=== PATIENT | female | born 1955 | race African-American/Black ===

== ENCOUNTER → 2018-11-26 | Outpatient (CLI) | payer MEDICARE ==
--- NOTE | 2018-11-26 11:23 | PCVCIMAG ---
APPROVED REPORT Indications Stenosis Doppler Spectral Velocity Analysis PSV / EDVPSV / EDV ECA (R) 61 / 11 cm/sECA (L) 208 / 18 cm/s dICA (R) 80 / 28 cm/sdICA (L) 80 / 26 cm/s Paulo (R) 79 / 25 cm/smICA (L) 97 / 25 cm/s pICA (R) 85 / 24 cm/spICA (L) 119 / 28 cm/s Bulb (R) 81 / 19 cm/sBulb (L) 124 / 20 cm/s dCCA (R) 82 / 20 cm/sdCCA (L) 101 / 17 cm/s mCCA (R) 101 / 19 cm/smCCA (L) 83 / 19 cm/s Vert (R) 110 / 19 cm/sVert (L) 72 / 0 cm/s ICA/CCA 1.04ICA/CCA 1.18 Findings The right carotid bulb has moderate calcified plaque. The right proximal internal carotid artery shows <40% stenosis. The right common carotid artery shows no significant stenosis. The right external carotid artery shows no significant stenosis. The left carotid bulb has moderate calcified plaque. The left proximal internal carotid artery shows 40-50% stenosis. The left common carotid artery shows no significant stenosis. The left external carotid artery shows no significant stenosis. Conclusion 1. Right internal carotid artery stenosis (<40%) 2. Left internal carotid artery stenosis (40-50%) 3. Antegrade right vertebral flow, retrograde left vertebral flow
--- NOTE | 2018-11-26 13:01 | PCVCIMAG ---
APPROVED REPORT Study performed: 11/26/2018 11:47:21 Exam: Stress Echocardiogram Indication: Hypertension, PVD, Smoking Patient Location: Echo lab Stress Nurse: Stormy Wiseman RN Status: routine Ht: 5 ft 5 in HR: 66 bpm BP: 110/80 mmHg Rhythm: NSR Medical History Medical History: Hyperlipidemia, PVD, smoking Procedure The patient underwent an Exercise Stress Test using the Pako Protocol. Blood pressure, heart rate, and EKG were monitored. An Echocardiogram was performed by refurbish technician in four stages in quad fashion. At peak stress, four selected images were obtained and placed side by side with resting images for comparison. Stress Test Details Stress Test: Exercise stress testing was performed using a Pako protocol. HR Resting HR: 66 bpmMax Heart Rate (APMHR): 157 bpm Max HR Achieved: 116 bpmTarget HR (85% APMHR): 133 bpm % of APMHR: 73 Recovery HR: 53 bpm HR response to stress: Normal HR response to stress BP Resting BP: 110/80 mmHg Max BP: 156/76 mmHg Recovery BP: 156/76 mmHg BP response to stress: Normal blood pressure response to stress. ECG Resting ECG: Sinus Rhythm, NSSTT changes Stress ECG: Sinus Rhythm, nonspecific ST-T abnormalities ST Change: Normal Maximum ST Deviation: 0 mm Arrhythmia: None Recovery ECG: Sinus Rhythm Recovery ST Change: Normal Recovery ST Deviation: 0 mm Clinical Reason for Termination: Leg pain/Claudication Stress Symptoms: Leg Fatigue Exercise duration: 2 min sec Highest Stage Achieved: Stage 1: 1.7 mph at 10% grade. Exercise capacity: 4.60 METs Angina Score: None Stress ECG Conclusion ECG: Non-ischemic Non-diagnostic exercise stress due to failure to attain target HR. Burton Treadmill Score is 2.0 which is Moderate risk. Pre-Stress Echo The resting Echocardiogram showed normal left ventricular contractility with an estimated Ejection Fraction of about 55-60%. Normal wall motion in all segments on baseline images. Post-Stress Echo The stress Echocardiogram showed normal left ventricular contractility with an estimated Ejection Fraction of about %. Normal augmentation of wall motion in all segments on post stress images. Clinical No clinical or ECG evidence for ischemia. Conclusion Clinical Response: Non-ischemic Exercise Capacity: Below Average Stress ECG Response: Indeterminant Stress Echo Images: Indeterminant The left ventricle is normal in size and wall thickness in both the rest and stress images. Submaximal stress, non-diagnostic stress test due to short excercise time and low heart rate achieved Suggest myocardial perfusion imaging, scheduled. <Conclusion> The left ventricle is normal in size and wall thickness in both the rest and stress images. Submaximal stress, non-diagnostic stress test due to short excercise time and low heart rate achieved Suggest myocardial perfusion imaging, scheduled.
--- NOTE | 2018-11-26 14:46 | PCVCIMAG ---
EXAM: ARTERIAL DUPLEX LEFT UPPER EXTREMITY INDICATION: Decreased pulses left arm. Left arm fatigue. Left subclavian steal. FINDINGS: Left arm: Severely blunted arterial waveforms throughout the subclavian, axillary, brachial, radial, and ulnar arteries worrisome for a nonvisualized occlusion or high-grade stenosis at the origin of the left subclavian artery. Note is made of reversed flow in the left vertebral artery which also supports this. IMPRESSION: Probable high-grade stenosis or occlusion origin left subclavian artery as reviewed above. We will contact Dr. Epps's office. Patient would likely benefit from conventional angiography with intervention is appropriate. LOC:[id number]
== END | disposition home or self-care (01) ==
LOC: PCVCIMAG 11:54
PROVIDERS: ATTEND Family Medicine
DX: I65.23 Occlusion and stenosis of bilateral carotid arteries (principal); I10 Essential (primary) hypertension; I73.9 Peripheral vascular disease, unspecified; R07.9 Chest pain, unspecified; F17.200 Nicotine dependence, unspecified, uncomplicated; R53.83 Other fatigue; R09.89 Other specified symptoms and signs involving the circulatory and respiratory systems
CPT/HCPCS: 93325; 93351; 93880; 93931

== ENCOUNTER → 2018-12-02 | Outpatient (CLI) | payer MEDICARE ==
[~2018-12-02] MED LIST: REGADENOSON 0.4 MG/5 ML DISP.SYRIN. IV ONE
--- NOTE | 2018-12-02 16:36 | PCVCIMAG ---
APPROVED REPORT Imaging Protocol: Rest Tc-99m/Stress Tc-99m 1 day Study performed: 12/02/2018 09:24:03 Indication: Chest pain, Left Arm Pain Patient Location: Out-Patient Stress Nurse: Elisabeth Bermudez RN, JUAN CARLOS Fagan Tech:Noman ZavalaMELODY Ht: 5 ft 5 in Wt: 112 lbs BSA: 1.55 m2 HR: 53 bpm BP: 95/53 mmHg BMI: 18.63 Rhythm: Sinus Bradycardia, Nonspecific T wave Abnormality Medical History Medical History: Age, Hyperlipidemia, PVD, Smoker Medications: ASA, Atorvastatin, Plavix, Pletal Allergies: No known drug allergies Pretest Chest Pain Characteristics: No chest pain Exercise History: Indeterminate Physical Disabilities: Legs Resting Data Rest SPECT myocardial perfusion imaging was performed in supine position 45 minutes following the intravenous injection of 11.2 mCi of Tc-99m Sestamibi. Time of rest injection: 0845 Date: 12/02/2018 Administration Route: IV Administration Site: Right Arm Pharmacologic Stress Pharmacologic stress test was performed by injecting Regadenoson 0.4 mg IV push over 10-15 seconds immediately followed by the intravenous injection of 34 mCi of Tc-99m Sestamibi. Time of stress injection: 1000 Date: 12/02/2018 Administration Route: IV Administration Site: Right Arm Gated Stress SPECT was performed 45 minutes after stress injection. The images were gated to evaluate regional wall motion and calculate left ventricular ejection fraction. Stress Test Details Stress Test: Pharmacologic stress testing performed using 0.4 mg of regadenoson per 5 mL given IV over 10 seconds. Reason for pharmacologic stress test: Claudication, prior submaximal stress echo. HRMax Heart Rate (APMHR): 157 bpm Resting HR: 53 bpmTarget HR (85% APMHR): 133 bpm Max HR Achieved: 118 bpm % of APMHR: 75 Recovery HR: 85 bpm BP Resting BP: 95/53 mmHg Max BP: 82/64 mmHg Recovery BP: 86/54 mmHg ECG Resting ECG: Sinus Bradycardia, Nonspecific T wave Abnormality Stress ECG: Sinus Tachycardia, Nonspecific T wave Abnormality ST Change: borderline Arrhythmia: None Recovery ECG: Sinus Rhythm, Nonspecific T wave Abnormality Clinical Reason for Termination: Completed protocol Stress Symptoms: Chest Tightness, Lightheaded, Dyspnea Symptoms resolved with caffeine. Study Quality Study: Good Study Data Post stress, the left ventricular ejection was 73%.. SSS: 0 SRS: 0 SDS: 0 TID = 0.97. Perfusion Normal left ventricular perfusion. Normal perfusion on both the stress and rest images. Wall Motion Normal left ventricular wall motion. Nuclear Conclusion ECG Findings: equivocal Clinical Findings: non-diagnostic Nuclear Findings: negative for ischemia Exercise Capacity: not assessed Left Ventricular Function: normal This study is of low probability for inducible ischemia or prior infarct. Normal global and segmental LV systolic function.
== END | disposition home or self-care (01) ==
LOC: PCVCIMAG 08:00
PROVIDERS: ATTEND Family Medicine
DX: R07.9 Chest pain, unspecified (principal); M79.602 Pain in left arm; I73.9 Peripheral vascular disease, unspecified
CPT/HCPCS: 78452; 93017; A9500; J2785

== ENCOUNTER → 2019-01-13 | Outpatient (CLI) | payer MEDICARE | END | disposition home or self-care (01) | LOC: PCVCCLINIC 09:50 | PROVIDERS: ATTEND Nuclear Medicine Nuclear Cardiology | DX: I77.1 Stricture of artery (principal); I73.9 Peripheral vascular disease, unspecified; I10 Essential (primary) hypertension; E78.00 Pure hypercholesterolemia, unspecified; F17.200 Nicotine dependence, unspecified, uncomplicated; M79.602 Pain in left arm; Z79.82 Long term (current) use of aspirin; Z79.899 Other long term (current) drug therapy | CPT/HCPCS: G0463 ==